=== PATIENT | male | born 1945 | race Caucasian/White ===

== ENCOUNTER 2019-03-08 11:21 | Outpatient (CLI) | payer MEDICARE ==
[~2019-03-08 11:21] MED LIST: ASPIRIN PO; CIPR500T87 PO; EZET1TAB30 PO; FINA5TAB4 PO; HYDR-3240 PO; LEVO15TA6 PO; MULT-516 PO
[2019-03-09] MEDS ORDERED: LEVO15TA6 PO (12:44)
[2019-03-09] MEDS ORDERED: CETI-158 PO (12:44)
[2019-03-09] MEDS ORDERED: EZET1TAB61 PO (12:44)
[2019-03-09] MEDS ORDERED: CHOL5000 PO (12:44)
[2019-03-09] MEDS ORDERED: FLUT9.9S NAS (12:44)
[2019-03-09] MEDS ORDERED: MULT1TAB60 PO (12:44)
[2019-03-09] MEDS ORDERED: TRIA50CA PO (12:44)
[2019-03-09] MEDS ORDERED: AZEL137S4 NAS (12:44)
== END 2019-03-08 23:59 | disposition home or self-care (01) ==
LOC: STAR 11:21
PROVIDERS: ATTEND Urology
DX: Z01.818 Encounter for other preprocedural examination (principal); N20.0 Calculus of kidney
CPT/HCPCS: 36415; 80053; 81003; 85025; 87086; 93005

== ENCOUNTER 2019-03-10 13:19 | Day surgery (SDC) | payer MEDICARE ==
[~2019-03-10] VITALS: Ht 185.4 cm; Wt 97.0 kg
[2019-03-10 19:17] VITALS: BP 161/94
== END 2019-03-10 19:47 | disposition home or self-care (01) ==
LOC: OR 13:19 → 4NOR 18:08 → OR 19:47
PROVIDERS: ATTEND Urology
DX: N20.0 Calculus of kidney (principal); N40.1 Benign prostatic hyperplasia with lower urinary tract symptoms; R39.12 Poor urinary stream; I10 Essential (primary) hypertension; G47.33 Obstructive sleep apnea (adult) (pediatric); E78.00 Pure hypercholesterolemia, unspecified; Z72.89 Other problems related to lifestyle; Z79.899 Other long term (current) drug therapy; Z88.8 Allergy status to other drugs, medicaments and biological substances; Z91.040 Latex allergy status; Z96.653 Presence of artificial knee joint, bilateral; Z98.890 Other specified postprocedural states; Z84.1 Family history of disorders of kidney and ureter
CPT/HCPCS: 36415; 52005; 74420; 80053; 81003; 85025; 87086; C1758; C1769; J1100; J1885; J2405; J2704; J3010; J7120; Q9967; G0378; J0171; J0690; J2710; J0330